=== PATIENT | female | born 1935 | race Caucasian/White ===

== ENCOUNTER 2016-06-03 07:12 | Day surgery (SDC) | payer MEDICARE, OTHER ==
[2016-06-03] VITALS (9 sets, daily range): BP systolic 123–143; BP diastolic 70–75; PULSE 63–69; RESP 13–18; O2SAT 92–95
[~2016-06-03] VITALS: Ht 170.2 cm; Wt 87.8 kg
[~2016-06-03 07:12] MED LIST: WARF5TAB PO
[2016-06-03] MEDS ORDERED: EPHEDrine/NS 5 mg/mL 5 mL Syringe ONE (07:13)
[2016-06-03] MEDS ORDERED: fentaNYL-PF 50 mCg/mL 2 mL Inj ONE (07:13)
[2016-06-03] MEDS ORDERED: Propofol 10,000 mCg/mL 20 mL Inj ONE (07:13)
[2016-06-03] MEDS ORDERED: Dexamethasone 4 mg/mL Inj ONE (07:13)
[2016-06-03] MEDS ORDERED: Ondansetron 2 mg/mL 2 mL Inj ONE (07:13)
[2016-06-03] MEDS: Lactated Ringer's 1,000 ML IV SCH ×2 (07:14→09:10)
[2016-06-03] MEDS ORDERED: WARF5TAB PO (07:22)
[2016-06-03] MEDS ORDERED: WARF2.5T PO (07:22)
[2016-06-03 08:27] LABS: INR 2.88 ratio
[2016-06-03] MEDS ORDERED: Lactated Ringer's 1,000 ML IV SCH (09:03)
[2016-06-03] MEDS ORDERED: Lactated Ringer's 500 ML IV PRN (09:03)
--- NOTE | 2016-06-03 09:03 | PCM.HPANE ---
Patient Data Surgeon Admitting Provider: Attending Provider:Rebecca Witt MD Primary Care Physician:Tanya Briones MD Other Provider:Amanda Elena Anesthesia Reason for Visit Abnormal Endometrial Thickening On Ultrasound Ht/WT & BMI Height (Feet): 5 Height (Inches): 7 Weight (Kilograms): 87.8 Body Mass Index 30.00 Allergies Coded Allergies: No Known Allergies (Verified Allergy, Unknown, 06/02/16) Past Anesthesia History Anesthesia History: Denies:: Anesthesia Reactions Diabetes History Hx Diabetes?: No MRSA MRSA: No Medications Blood Thinner: Coumadin (not discontinued by gynecology) Hypertension Medication: No Home Meds Incl Beta Rene: No Reported Medications Warfarin Sodium (Coumadin)2.5 Mg Tablet2.5 Mg PO 6 DAYS WEEK 30 Days Ref 0 06/03/16 Warfarin Sodium (Coumadin)5 Mg Tablet5 Mg PO MONDAY 30 Days Ref 0 06/03/16 Discontinued Scripts Warfarin Sodium (Coumadin)5 Mg Tablet5 Mg PO ONCE@17 #4 TABLET Prov:Emily Roberts DO 01/27/16 Enoxaparin (Lovenox)100 Mg/Ml [id number] Mg SUBQ Q12H #8 Prov:Emily Roberts DO 01/27/16 History History of ENT Problems?: No HEENT History: Denies:: Abnormal Airway Cataracts Difficult Intubation Dysphagia Glaucoma Hearing Problem Sinus Problem TMJ Denture Type: Full- Upper Full- Lower Teeth Condition: Missing Teeth Hx of Heart Problems?: No Cardiovascular History: Denies:: AICD Abdominal Aortic Aneurism Atrial Fibrillation Cardiac Surgery Chest Pain Congestive Heart Failure Coronary Artery Disease Edema Heart Murmur Hypertension Irregular Heartbeat Pacemaker Peripheral Vascular Rheumatic Fever Thrombophlebitis Valvular Heart Disease Hx of Respiratory Problem?: Yes Respiratory History: Positive for:: Pulmonary Embolism (jan 2016 admit for multifocal pe) Denies:: Oxygen Administration Tuberculosis Use of C-PAP Machine Other Resp Pertinent History: asymptomatic at this time Hx Neurologic Problems?: No Hx of GI Problems?: Yes Hx of Problems?: No Female Hx: Denies:: Currently Endometriosis Pelvic Inflammatory Problems with Breasts? Skin History: Denies:: History Skin Disorders? Pressure Ulcers Hx Musculoskeletal Problems?: No Musculoskeletal History: Positive for:: Back Injury Denies:: Degenerative Joint Joint Replacement Musculoskeletal Trauma Systemic Lupus Hx of Psycho/Social Problems?: No Hx Surgeries?: Yes (TUBAL LIGATION 1980, hyster d&c 05/2016) Hx Any Other Health Problems?: Yes Other History: Positive for:: Hospitalization (child births) Denies:: Cancer Endocrine Disease Thyroid Disease History Blood Transfusions: Denies:: Blood Transfuse Reaction Blood Transfusions Hx Diabetes: No Hx Alcohol Use: NoHx Substance Use: No Smoking Status: Never Smoker Have You Smoked inLast 12 mo: No Stop/Bang [id number] Risk Assessment: Low Risk, <3 Yes Risk Assessment Category Category 1A: Patient has history of documented sleep apnea, and HAS NOT received any narcotic, sedative or anesthesia administration during this stay. Category 1B: Patient has history of documented sleep apnea, and HAS received any narcotic , sedative or anesthesia administration during this stay Category 2: Patient has SUSPECTED Obstructive Sleep Apnea, and HAS received any narcotic , sedative or anesthesia administration during this stay. Category 3: Patient has SUSPECTED Obstructive Sleep Apnea and HAS NOT received narcotic, sedative or anesthesia administration during this stay. Category 4: Outpatient in Procedural Areas with known sleep apnea or who screen positive for High Risk via the STOP/BANG questionnaire. Exam Exam Vital Signs Vital Signs Date Time Temp Pulse Resp B/P Pulse Ox O2 Delivery O2 Flow Rate FiO2 06/03/16 07:31 35.9 66 16 126/70 94 Room Air General Appearance: Alert, Oriented X3, Cooperative, No Acute Distress HEENT/AIRWAY: MP 2 Lungs: Clear to Auscultation, Normal Air Movement Heart: Exam Unremarkable, Regular Rate/Rhythm, No Murmurs/Rubs/Gallops Meds/Labs/Diagnostics Admission Meds Current Medications Lactated Ringer's (Lr) 1,000 ml @ 120 mls/hr Q8H20M IV Last administered on t 07:14; Start 06/03/16 at 05:00; Stop 06/03/16 at 13:19 Plan Impression Patient chart reviewed, patient interviewed and anesthestic plan with risks, benefits, and alternatives discussed, and informed consent obtained. ASA Physical Status: ASA3 Severe Disease (thrombofilia and anticoagulation) Anesthetic Plan: GA Bene/Risks/Altern/Consents: Yes HP Complete Prior to Induction: Yes Tayo Dutton MD Jun 03, 2016 08:02
[2016-06-03] MEDS ORDERED: Labetalol 5 mg/mL 4 mL Inj IV PRN (09:05)
[2016-06-03] MEDS ORDERED: fentaNYL-PF 50 mCg/mL 2 mL Inj IVPUSH PRN (09:05)
[2016-06-03] MEDS ORDERED: HYDROmorphone 1 mg/mL Inj IVPUSH PRN (09:05)
[2016-06-03] MEDS ORDERED: Ondansetron 2 mg/mL 2 mL Inj IVPUSH PRN (09:05)
[2016-06-03] MEDS ORDERED: Atropine 0.4 mg/mL Inj IVPUSH PRN (09:05)
[2016-06-03] MEDS ORDERED: Phenylephrine 10,000 mCg/mL Inj IVPUSH PRN (09:05)
[2016-06-03] MEDS ORDERED: MetoCLOpramide 5 mg/mL 2 mL Inj IVPUSH PRN ×2 (09:05→10:05)
[2016-06-03] MEDS ORDERED: EPHEDrine Sulfate 50 mg/mL Inj IVPUSH PRN (09:05)
[2016-06-03] MEDS ORDERED: oxyCODONE-Acetamin 5-325 mg Tablet PO PRN (10:05)
[2016-06-03] MEDS ORDERED: diphenhydrAMINE 25 mg Capsule PO PRN (10:05)
--- NOTE | 2016-06-03 10:08 | PCM.DIGYN ---
Surgical Discharge Instruction Dates of Hospitalization Date of Hospital Admission Providers Admitting Physician: Primary Care Physician: Tanya Briones MD Attending Physician: Rebecca Witt MD Diet Discharge Diet: No restrictions Activity Discharge Activity-General: Balance rest and activity, No driving while taking narcotic Dressing and Incisional Care Hygiene: May shower, NO bathtub, hot tub or whirlpool Follow Up Plan Follow-up Provider (F9): Rebecca Witt MD Follow-up appointment: Weeks (2) Call your provider for: Fever, Chills, Shortness of breath, Vomitting, Heavy vaginal bleeding, Increasing pain Claudette Thomas DO Jun 03, 2016 10:08
--- NOTE | 2016-06-03 10:13 | PCM.SURGOP ---
Surgical Operative Report Date of Service: Jun 03, 2016 Pre Operative Diagnosis Thickened Endometrial Echo on ultrasound Post Operative Diagnosis Thickened Endometrial Echo on ultrasound Procedure: 1. Hysteroscopy D&C with Myosure device Surgeon and Hand Crown Pouncer: Surgeon: Rebecca Witt MD Assistants: None Indication for Procedure 81 y/o with thickened endometrial echo of 13.1mm. Findings: Shaggy appearing endometrial cavity Procedure Details The patient was taken to the operating room where her general anesthesia was obtained without difficulty. She was placed in a lithotomy position in the [facility] and prepared and draped in the normal sterile fashion. A sterile speculum was inserted and the cervix was identified and grasped initially with an Allis clamp to cause less trauma, however this did not stay in place and a single toothed tenaculum was applied to the anterior cervix. The cervix was dilated with Hegar cervical dilator and the Myosure hysteroscope was inserted and the above noted findings were appreciated. The myosure device was inserted and and an endometrial curettage was performed. All instruments were removed from the patients vagina. All instrument counts were correct times two at the end of the procedure and patient was taken to the recovery room awake and in good condition. Complications There were no periprocedural complications identified. Surgical Specimen Removed: Yes Specimen sent to Pathology: Yes Surgical Specimen description: Endometrial Currettings Anesthetic Plan: GA Grafts, Implants: None Output, Estimated Blood Loss: 0 Blood Administration during velasquez: No Stent(s) None Catheters: None Post Operative Plan Discharge home when patient is awake and stable. Rebecca Witt MD Jun 03, 2016 10:13
--- NOTE | 2016-06-03 10:21 | PCM.ANEP1 ---
Post Anesthesia Phase 1 PACU Phase 1 Assessment Date of Service: Jun 03, 2016 Vital Signs Vital Signs Date Time Temp Pulse Resp B/P Pulse Ox O2 Delivery O2 Flow Rate FiO2 06/03/16 10:15 67 16 131/70 95 Room Air 2 06/03/16 10:10 67 15 126/72 95 Room Air 2 06/03/16 10:05 36.3 67 13 123/73 95 Room Air 2 06/03/16 07:31 35.9 66 16 126/70 94 Room Air Anesthetic Administered: GA Level of Alertness: Sleepy, easy to arouse SCHULTZ's with Equal Strength: Yes Pain: No Nausea or Vomiting: No Cardiovascular Function and Hy: Yes Oxygen Delivery: Nasal Cannula Lungs: Clear to Auscultation, Normal Air Movement Complications: No Follow up Care: No Patient Instructions Provided: Yes (per gynecology) Tayo Dutton MD Jun 03, 2016 10:21
--- NOTE | 2016-06-06 11:39 | PATH ---
SURGICAL PATHOLOGY Attending Physician:Rebecca Witt, CASE STATUS: Signed Out PATIENT NAME: MARIANA KIDD PID: [id number] : 1935 DATE COLLECTED:06/03/2016 20:41 SPECIMEN: Endometrium, Curettage CLINICAL HISTORY: THICKENED ENDOMETRIUM 1). ENDOMETRIAL CURETTINGS FINAL DIAGNOSIS: 1.ENDOMETRIAL CURETTINGS: ENDOMETRIAL POLYP EXHIBITING CYSTIC ATROPHY. NO EVIDENCE OF MALIGNANCY OR HYPERPLASIA. ICD10 CODE N84.0 GROSS DESCRIPTION: Received in formalin, labeled with the patient' s name and "endometrial curettings", is a collection of rob tissue fragments measuring 1.5 x 1.5 x 0.5 cm in aggregate. All fragments are totally submitted in one cassette. ([id number]) MICRO DESCRIPTION: See diagnosis. ICD-9 CODES: CPT CODES: 1: 20431 Electronically Signed Out Chris Glynn MD [facility] Pathology [facility] [address], [place] [address] Technical component performed at [facility], [address], [place], [address]
== END 2016-06-03 23:59 | disposition home or self-care (01) ==
LOC: SAS 07:12
PROVIDERS: ATTEND Obstetrics & Gynecology
DX: R93.8 Abnormal findings on diagnostic imaging of other specified body structures (principal); N84.0 Polyp of corpus uteri; Z86.711 Personal history of pulmonary embolism; Z79.01 Long term (current) use of anticoagulants; Z90.710 Acquired absence of both cervix and uterus
CPT/HCPCS: 36415; 58558; 85610; 88305; J1100; J1885; J2405; J3010; J7120

== ENCOUNTER 2016-10-17 12:52 | Emergency (ER) | payer MEDICARE, OTHER ==
[~2016-10-17] VITALS: Ht 170.2 cm; Wt 88.6 kg
[2016-10-17 12:52] VITALS: BP 129/81; PULSE 66; RESP 16; O2SAT 98
[~2016-10-17 12:52] MED LIST changes: +WARF2.5T PO
[2016-10-17 13:20] LABS: BASOPHILS % (AUTO) 0.7 % (0-3); EOSINOPHILS % (AUTO) 2.8 % (0-5); MONOCYTES % (AUTO) 9.2 % (4-12); Mean Corpuscular Hemoglobin 30.5 pg (27.0-35.0); Mean Corpuscular Volume 91.9 fL (81-100); NEUTROPHILS % (AUTO) 61.2 % (40-74); Platelet Count 278 bil/L (150-400)
[2016-10-17 14:03] LABS: TROPONIN T < 0.010 ug/L (0.0-0.011)
--- NOTE | 2016-10-17 15:29 | ED.REPORT ---
HPI-Chest Pain 40 and Over Date of Service Oct 17, 2016 ED Provider: Anmol Mcqueen MD Patient is a 81 year old female with history of PE on Warfarin who presents to the ED complaining of increasing right side chest pain that wraps around to her back that onset three days ago. Associated symptoms include increased shortness of breath but she reports she has been short of breath for the past three weeks. The patient reports that the pain began after bending and the pain is exacerbated with twisting and movement. The patient denies recent falls or trauma Nursing Notes Stated Complaint: CHEST PAIN Chief Complaint: General Complaint Nursing Notes Reviewed: Yes Allergies: Coded Allergies: No Known Allergies (Verified Allergy, Unknown, 10/17/16) Scheduled Warfarin Sodium (Coumadin) 5 Mg Tablet 5 MG PO MONDAY Warfarin Sodium (Coumadin) 2.5 Mg Tablet 2.5 MG PO 6 DAYS WEEK General Time Seen by MD: 15:28 Chief Complaint Chest pain Hx Obtained From: Patient Arrived By: Walk-in Sudden in Onset?: Yes Onset Occurred: 3 days ago (3 weeks) Symptom Duration: Since onset Location: : Chest right Quality: Painful Radiation: : Back Severity: Current: Moderate Recent Healthcare: Recent doctor visit Past Medical History Past Medical History PE Past Surgical History Tubal ligation Smoking History Never Smoker Social History Long history of smoke exposure with Alcohol Use: Denies alcohol use Drug Use: Denies drug use Other Social History: Good social support Ambulatory Status Independent Review of Systems Constitutional: Denies: Chills, Fever Respiratory: Reports: Shortness of breath, Denies: Non-productive cough Cardiovascular: Reports: Chest pain Musculoskeletal: Reports: Back pain, Denies: Extremity pain, Extremity swelling Skin: Denies Itching, Denies Rash Complete sys rev & neg: except as marked. Physical Exam Initial Vital Signs Vital Signs (First) Date Time Temp Pulse Resp B/P Pulse Ox O2 Delivery O2 Flow Rate FiO2 10/17/16 12:52 36.1 66 16 129/81 98 Room Air Initial VS: Reviewed General/Constitutional: Awake, Alert, No acute distress Respiratory / Chest: Atraumatic, Breath sounds NL, Breath sounds = bilat, No respiratory distress reproducable right chest wall tenderness Cardiovascular: Heart rate NL, Regular rhythm, Heart sounds NL Abdomen: Atraumatic, Soft, Non-tender Neck: Atraumatic, Supple Lower Extremity / Pelvis / MS: Atraumatic, No edema Skin: Atraumatic, Color NL, No rash, Warm, Dry Neurologic: Oriented X3, Speech NL Psychiatric: Affect NL, Mood NL Head / Eyes: Atraumatic, Normocephalic, PERRL, EOMI Interpretation & Diagnostics Lab Results Interpretation Result Diagram: 10/17/16 1312 10/17/16 1312 Test 10/17/16 13:12 10/17/16 16:13 White Blood Count 5.7th/mm3 (3.8-10.1) Red Blood Count 4.95mil/mm3 (3.90-5.20) Hemoglobin 15.1g/dL (12.0-15.6) Hematocrit 45.5% (35.0-46.0) Mean Corpuscular Volume 91.9fL (81-100) Mean Corpuscular Hemoglobin 30.5pg (27.0-35.0) Mean Corpuscular Hemoglobin Concent 33.2% (32.0-37.0) Red Cell Distribution Width 12.8% (12.3-15.4) Platelet Count 278bil/L (150-400) Neutrophils (%) (Auto) 61.2% (40-74) Lymphocytes (%) (Auto) 26.1% (14-46) Monocytes (%) (Auto) 9.2% (4-12) Eosinophils (%) (Auto) 2.8% (0-5) Basophils (%) (Auto) 0.7% (0-3) Prothrombin Time 25.4sec (8.1-12.5) Prothromb Time International Ratio 2.33ratio D-Dimer < 0.50mg/L FEU (<0.50) Sodium Level 138mEq/L (134-144) Potassium Level 4.2mEq/L (3.5-5.2) Chloride Level 102mEq/L (97-108) Carbon Dioxide Level 18mmol/L (18-29) Blood Urea Nitrogen 14mg/dL (8-27) Creatinine 0.89mg/dL (0.57-1.00) Estimat Glomerular Filtration Rate 88mL/min (>59) Glucose Level 122mg/dL (60-99) Calcium Level 9.4mg/dL (8.5-10.1) Total Bilirubin 0.4mg/dL (0.0-1.2) Aspartate Amino Transf (AST/SGOT) 24U/L (0-50) Alanine Aminotransferase (ALT/SGPT) 22U/L (0-32) Alkaline Phosphatase 91U/L (25-165) Total Protein 6.9g/dL (6.4-8.4) Albumin 4.0g/dL (3.4-5.0) Troponin T < 0.010ug/L (0.0-0.011) X-Ray Chest Interpretation Chest Xray Interpretation: IMPRESSION: No acute disease Dictated by: Tyler Escobar M.D. on 10/17/2016 at 15:31 Approved by: Tyler Escobar M.D. on 10/17/2016 at 15:33 Interpretation / Wet Read by: Interpret - Radiologist Re-Eval/Medical Decision Med Decision/Clinical Course 81-year-old female with reproducible right-sided chest pain 3 days. Troponins are negative. No acute changes changes. D-dimer is negative. Pain resolved with Toradol. Likely musculoskeletal. We will discharge home with return precautions. Follow-up primary doctor. Return precautions given. Time of Eval: 16:52 Re-Evaluation/Progress Note: Discussed results and plan for discharge. Patient understands and agrees to plan. All questions were addressed. Counseled Regarding: Diagnosis, Lab results, Need for follow-up, When/why to return to ED Discharge & Departure Primary Impression: Non-cardiac chest pain Disposition: Home Discharge Condition All VS Reviewed: Yes Condition: Stable Patient Instructions: Musculoskeletal Pain (ED) Additional Instructions: Your heart enzyme and marker for a PE was normal and reassuring. Your chest X-ray was also normal and reassuring. Your pain is likely in your muscle. Take ibuprofen as directed for pain. You can also try icing the area for 30 minutes, 3x a day. Try not to do any heavy lifting over the next few days. Follow up with your primary care physician next week. Return to the emergency department if you develop any new or concerning symptoms Referrals: Tanya Briones MD (PCP) Scribe Attestation Portions of this note were transcribed by Sara Edge. I, Dr. Mcqueen personally performed the history, physical exam and medical decision-making; I reviewed and confirmed the accuracy of the information in the transcribed note. Signed by: Robert Pelletier, 10/17/16. copies to: Tanya Briones MD, Ben M MD Oct 17, 2016 15:29 Sary Edge Oct 17, 2016 16:06
[2016-10-17 16:18] LABS: INR 2.33 ratio
[2016-10-17 16:32] VITALS: BP 140/76; PULSE 60; RESP 14; O2SAT 95
--- NOTE | 2016-10-17 16:34 | DRSVH ---
PROCEDURE: X-RAY CHEST ONE VIEW, PORTABLE ([id number]) INDICATIONS: chest pain TECHNIQUE: One view of the chest was acquired. COMPARISON: None. FINDINGS: Surgical changes and devices: None. Lungs and pleura: No pleural effusions or pneumothorax. Lungs are clear. Mediastinum: Mediastinal contours appear normal. Heart size is normal. Bones and chest wall: No suspicious bony lesions. Overlying soft tissues appear unremarkable. IMPRESSION: No acute disease Dictated by: Tyler Escobar M.D. on 10/17/2016 at 15:31 Approved by: Tyler Escobar M.D. on 10/17/2016 at 15:33
[2016-10-17 17:23] VITALS: BP 140/76; PULSE 60; RESP 14; O2SAT 95
== END 2016-10-17 17:30 | disposition home or self-care (01) ==
LOC: SED 12:52
DX: R07.89 Other chest pain (principal); Z86.711 Personal history of pulmonary embolism; Z79.01 Long term (current) use of anticoagulants
CPT/HCPCS: 36415; 71010; 80053; 84484; 85025; 85378; 85610; 96372; 99285; J1885